=== PATIENT | female | born 1990 | race Asian ===

== ENCOUNTER 2018-02-18 04:48 | Emergency (ER) | payer BC, OTHER ==
[2018-02-18 05:01] LABS: URINE BLOOD (Dip) POC Trace-intact (NEGATIVE); URINE GLUCOSE (Dip) POC Negative (NEGATIVE); URINE KETONES (Dip) POC Negative (NEGATIVE); URINE LEUKOCYTE EST (Dip) POC Negative (NEGATIVE); URINE NITRITE (Dip) POC Negative (NEGATIVE); URINE TOTAL PROTEIN POC 1+ (NEGATIVE)
== END 2018-02-18 05:55 | disposition home or self-care (01) ==
LOC: FTE 05:55
DX: R30.0 Dysuria (principal)
CPT/HCPCS: 81003; 81025; 99282